=== PATIENT | male | born 2000 | race Caucasian/White ===

== ENCOUNTER 2021-11-08 09:46 | Emergency (ER) | payer MEDICAID ==
[~2021-11-08] VITALS: Ht 175.3 cm; Wt 86.4 kg
[2021-11-08 10:10] VITALS: BP 128/72; PULSE 60; TEMP 97.5
== END 2021-11-08 10:50 | disposition home or self-care (01) ==
LOC: COL.ER 09:46
DX: S61.412A Laceration without foreign body of left hand, initial encounter (principal); W26.0XXA Contact with knife, initial encounter